=== PATIENT | female | born 1965 | race Caucasian/White ===

== ENCOUNTER 2024-01-29 10:45 | Emergency (ER) | payer BC ==
[2024-01-29 11:00] VITALS: BP 164/113; PULSE 114; RESP 18; TEMP 98.3; BMI 25.4
[2024-01-29] MEDS ORDERED: DIPHTH,PERTUSS(ACELL),TET 0.5 ML DISP.SYRIN IM ONE (11:15)
[2024-01-29] MEDS: DIPHTH,PERTUSS(ACELL),TET 0.5 ML DISP.SYRIN IM ONE (11:19)
== END 2024-01-29 11:23 | disposition home or self-care (01) ==
LOC: FER 10:45
PROC: 0XQMXZZ Repair Left Thumb, External Approach (ICD-10-PCS; principal; 2024-01-29)
PROC: 3E0234Z Introduction of Serum, Toxoid and Vaccine into Muscle, Percutaneous Approach (ICD-10-PCS; 2024-01-29)
DX: S61.012A Laceration without foreign body of left thumb without damage to nail, initial encounter (principal); W29.0XXA Contact with powered kitchen appliance, initial encounter; Y92.009 Unspecified place in unspecified non-institutional (private) residence as the place of occurrence of the external cause; Y93.G1 Activity, food preparation and clean up; Z23 Encounter for immunization
CPT/HCPCS: 90715; 99282-25